=== PATIENT | female | born 1940 | race Caucasian/White ===

== ENCOUNTER → 2018-12-31 | Outpatient (CLI) | payer MEDICARE | END | disposition home or self-care (01) | LOC: CFH 08:42 | PROVIDERS: ATTEND Family Medicine | DX: R92.1 Mammographic calcification found on diagnostic imaging of breast (principal) | CPT/HCPCS: 77065 ==

== ENCOUNTER 2019-01-23 08:31 | Outpatient (CLI) | payer MEDICARE ==
[2019-01-23] MEDS ORDERED: LIDOCAINE 1%, 20ML ONE (10:00)
[2019-01-23] MEDS ORDERED: SODIUM BICARBONATE 4.0%, 5ML ONE (10:00)
[2019-01-23] MEDS ORDERED: LIDOCAINE 1%-EPI 1:100K, 20ML ONE (10:00)
== END 2019-01-23 23:59 | disposition home or self-care (01) ==
LOC: CFH 08:31
PROVIDERS: ATTEND Family Medicine
DX: D24.1 Benign neoplasm of right breast (principal); R92.0 Mammographic microcalcification found on diagnostic imaging of breast
CPT/HCPCS: 19081; 77065; 88305; J3490

== ENCOUNTER → 2020-08-28 | Outpatient (CLI) | payer MEDICARE | END | disposition home or self-care (01) | LOC: CFH 12:40 | PROVIDERS: ATTEND Nurse Practitioner | DX: Z12.31 Encounter for screening mammogram for malignant neoplasm of breast (principal); N63.11 Unspecified lump in the right breast, upper outer quadrant | CPT/HCPCS: 77063; 77067 ==